=== PATIENT | male | born 1995 | race Caucasian/White ===

== ENCOUNTER 2017-05-22 08:23 | Emergency (ER) | payer OTHER ==
[~2017-05-22] VITALS: Ht 182.9 cm; Wt 72.7 kg
[2017-05-22 08:35] VITALS: BP 114/70; PULSE 64; RESP 14; O2SAT 100
--- NOTE | 2017-05-22 08:42 | ED.REPORT ---
HPI-Trauma Multiple Date of Service May 22, 2017 ED Provider: The patient is an otherwise healthy 22 year old male who presents to the emergency department complaining of a head laceration that occurred prior to arrival. The patient was cleaning a machine at work when he stood up to quickly and hit his head on a cigarette making machine hopper feeder. He did not lose consciousness. He denies any other injuries or trauma. His tetanus is up to date. Nursing Notes Stated Complaint: CUT ON HEAD Chief Complaint: Laceration Nursing Notes Reviewed: Yes Allergies: Coded Allergies: No Known Allergies (Unverified Allergy, Unknown, 09/14/14) General Time Seen by Provider: 08:46 Chief Complaint Head pain/injury Hx Obtained From: Patient Arrived By: Walk-in Onset Occurred: Just prior to arrival Context of Onset: During work Symptom Duration: Since onset Progression Since Onset: Constant Context: Occurred at: Workplace Location: : Scalp Quality: Painful Radiation: Does not radiate Severity: Current: Mild Severity: Maximum: Mild Immunizations: Tetanus up to date Recent Healthcare: No recent doctor visit, No recent hospitalization Similar Sx Previous: No Past Medical History Past Medical History Healthy Family History Noncontributory Smoking History Unknown if Ever Smoker Social History Other Social History: Good social support, Local resident Occupation Works at a machine shop Ambulatory Status Independent Review of Systems Review of Systems Note: +scalp lac Complete sys rev & neg: except as marked. Physical Exam Initial Vital Signs Vital Signs (First) Date Time Temp Pulse Resp B/P Pulse Ox O2 Delivery O2 Flow Rate FiO2 05/22/17 08:35 37.0 64 14 114/70 100 Room Air Initial VS: Reviewed ENT: Mucous membranes moist, Conjunctiva normal, No scleral icterus Lymphatic: No lymphadenopathy Extremities: Vascular intact, Neuro intact, No swelling, No tenderness Skin: Warm, Dry, No cyanosis Psychiatric: Mood/affect normal, Behavior normal, Normal thought content General/Constitutional: Awake, Alert Head / Eyes: Normocephalic, PERRL, EOMI There is a superficial laceration about his right parietal scalp that measures about 5 mm. There are several tiny metallic foreign bodies present in the wound. It does not extend beyond the subcutaneous tissue. There is mild oozing blood. No palpable bony deformity. Neck: Atraumatic, Supple, Full range of motion, No swelling, Non-tender, No midline vertebral tend, No masses, No crepitus, No JVD, No tracheal deviation Respiratory / Chest: Atraumatic, Breath sounds NL, Breath sounds = bilat, No respiratory distress, No rales, No rhonchi, No wheezing, No stridor, No chest tenderness, No chest wall deformity, No crepitus Cardiovascular: Heart rate NL, Regular rhythm, Heart sounds NL, Cap refill not delayed, Peripheral circulation NL Abdomen: Atraumatic, Soft, Non-tender, No guarding, No rebound, No distention Back: Atraumatic, Inspection NL, Non-tender, No midline vertebral tend, No paraspinal tenderness, No CVA tenderness Neurologic: Oriented X3, Speech NL, No motor deficits, No sensory deficits Procedures Laceration Management Time: 09:05 Procedure Performed by: ED physician Consent / Setup / Site Prep: Consent from patient, Time-out performed, Hand hygiene observed Location of Wound: 5 mm lac to right parietal region Local Anesthesia: Lidocaine 2%, 1cc Digital Block: No Wound Preparation: Normal saline Debridement: None Irrigation: Copious Foreign Body Explore / Removal: Explored for foreign body, Removed multiple , Complete removal Undermining / Margins: Flaps aligned Repair Skin: Yaya # Sutures - Skin: 2 Closure Layers: 1 Post-Procedure / Complications: No complications, Condition improved, Tolerated procedure well, Patient stable Re-Eval/Medical Decision Med Decision/Clinical Course The patient is an otherwise healthy 22 year old male who presents to the emergency department complaining of a head laceration that occurred prior to arrival. The patient was cleaning a machine at work when he stood up to quickly and hit his head on a cigarette making machine hopper feeder. He did not lose consciousness. He denies any other injuries or trauma. His tetanus is up to date. Here in the emergency department patient is afebrile with stable vital signs are normal. Distress. Examination reveals laceration as described above. Of note there were multiple small metal fragments present. The wound was copiously irrigated and metal fragments were removed. The wound is relatively superficial and does not penetrate the galea. The wound was repaired using 2 yaya as documented above. The procedure was tolerated well. Prior to discharge follow-up and return precautions were reviewed in detail with the patient who verbalized understanding and agreement with the plan. The patient was discharged in stable condition. Source of Hx: Old records Re-Evaluation/Progress : Time of Eval: 09:33 Re-Evaluation/Progress Note: Discussed plan for discharge. All questions were addressed. Counseled Regarding: Diagnosis, Need for follow-up, When/why to return to ED Discharge & Departure Impression: Primary Impression: Scalp laceration Encounter type: initial encounter Qualified Code: S01.01XA - Laceration without foreign body of scalp, initial encounter Additional Impression: Foreign body of scalp Encounter type: initial encounter Qualified Code: S00.05XA - Superficial foreign body of scalp, initial encounter Disposition: Home Discharge Condition All VS Reviewed: Yes Condition: Stable Patient Instructions: Laceration (ED) Additional Instructions: Thank you for entrusting us with your care today. We placed 2 yaya today. You will need to have them removed in 7 days. Make sure to keep the wound clean. Seek care for any signs of infection or any other new or concerning symptoms. Referrals: NOPCP (PCP) Scribe Attestation Portions of this note were transcribed by Rebecca Molina. I, Dr. Saravia personally performed the history, physical exam and medical decision-making; I reviewed and confirmed the accuracy of the information in the transcribed note. Signed by: Luca Mcintosh, 05/22/2017 at 0950. Gabriel Saravia MD May 22, 2017 08:42 Rebecca Molina May 22, 2017 08:52
[2017-05-22] MEDS ORDERED: TdaP Vaccine 0.5 mL Inj IM ONE (08:45)
[2017-05-22] MEDS ORDERED: Lidocaine 2%-Epi 1:100,000 20 mL Inj SUBQ ONE (09:10)
== END 2017-05-22 09:35 | disposition home or self-care (01) ==
LOC: SED 08:23
DX: S01.02XA Laceration with foreign body of scalp, initial encounter (principal); W31.89XA Contact with other specified machinery, initial encounter; Y93.89 Activity, other specified; Y99.0 Civilian activity done for income or pay; Y92.59 Other trade areas as the place of occurrence of the external cause

== ENCOUNTER 2017-05-31 07:21 | Emergency (ER) | payer OTHER ==
[2017-05-31 07:23] VITALS: BP 109/66; PULSE 91; RESP 16; O2SAT 98
== END 2017-05-31 07:29 ==
LOC: SED 07:21
DX: Z48.02 Encounter for removal of sutures (principal)